=== PATIENT | female | born 1945 | race Caucasian/White ===

== ENCOUNTER → 2016-09-26 | Outpatient (CLI) | payer MEDICARE, OTHER ==
[~2016-09-26] MED LIST: ALORA0.05 MG/24 TD; CITALOPRAM20 MG PO; LOSARTAN POTAS100 MG PO; MUCINEX600 M1 PO; NADOLOL 20 MG T20 MG PO; OMEPRAZOLE20 MG PO; PRAVASTATIN 20M20 MG PO; SPIRIVA HA1 PUFF/INH IH; SYMBICORT1 AER IH
--- NOTE | 2016-09-28 14:38 | RADIOLOGY REPORT PS360 ---
DIG MAMM-SCREEN [facility]LY W/CAD CAD Screening ORDERING PHYSICIAN : Bassam Julio MD PATIENT AGE: 71 years GENDER: Female COMPARISON: Previous mammograms: January. INDICATION: Routine screening no hormones. No new complaints. Previous surgical excisional biopsy right breast. Noncontributory family history TECHNIQUE: Standard CC and MLO images were obtained. R2 CAD reviewed. FINDINGS: Low-density breast bilaterally. No dominant mass nor suspicious calcifications. . No architectural distortion. Minimal fibroglandular elements Again scattered small axillary lymph nodes observed and stable. RIGHT BREAST: Unchanged follow-up in one year. LEFT BREAST: Stable density at the medial left breast. Stable scattered densities elsewhere. Unchanged 2011 IMPRESSION: Stable bilateral mammogram. No areas of concern With no malignancy evident radiographically BI-RADS CATEGORY: 1_Negative RECOMMENDED FOLLOWUP: 12M 12 MONTH FOLLOW-UP (A letter has been sent to the patient regarding results of the study.)
== END ==
LOC: RAD 09:37
DX: Z12.31 Encounter for screening mammogram for malignant neoplasm of breast (principal)
CPT/HCPCS: G0202

== ENCOUNTER → 2016-12-04 | Outpatient (CLI) | payer MEDICARE, OTHER ==
--- NOTE | 2016-12-04 17:33 | RADIOLOGY REPORT PS360 ---
CHEST(2 VIEWS-NOT PORTABLE) COMPARISON: None HISTORY: Shortness of breath TECHNIQUE: PA and lateral to FINDINGS: Borderline emphysematous changes seen with flattening of the hemidiaphragms. There is bilateral basilar opacities suggesting atelectasis. Is no pleural fluid. Cardiac size is normal and the vascularity is normal. IMPRESSION: Borderline COPD with minimal bilateral basilar atelectasis
== END ==
LOC: RAD 10:59
DX: J44.9 Chronic obstructive pulmonary disease, unspecified (principal)

== ENCOUNTER 2017-01-19 09:12 | Day surgery (SDC) | payer MEDICARE, OTHER ==
[~2017-01-19] VITALS: Ht 154.9 cm; Wt 85.3 kg
[~2017-01-19 09:12] MED LIST changes: -OMEPRAZOLE20 MG PO; +OMEPRAZOLE40 MG PO; +SYMBICORT 10.10.2 M1 IH; -SYMBICORT1 AER IH
--- NOTE | 2017-01-19 11:35 | Operative Note ---
Upper GI Endoscopy Procedure date: 01/19/17 Date of : 45 Procedure:Upper GI Endoscopy Esophagogastroduodenoscopy with cold biopsies Indications: Mrs. Grande is a 71-year-old female who is here for diagnostic upper endoscopy. The patient did have a diaphragmatic hernia repair by Dr. David Peoples. Over the last 6 months, she has had epigastric abdominal pain. She had an ultrasound, HIDA scan and upper gastrointestinal series which were essentially unremarkable. The patient does report some nausea, early satiety, bloating and belching. She has some indigestion. Her reflux is controlled with omeprazole. She reports regular bowel function. She reports no melena but does have some occasional hemorrhoidal bleeding. She was to undergo colonoscopy today but was unable to tolerate bowel preparation and had emesis of both doses of the split prep. Her last colonoscopy was 10 years ago. She did have a single polyp at that time and this was performed by Robert Marrero M.D. She does have a long history of chronic obstructive pulmonary disease. Performing Provider: Pranay Caballero MD Referring Provider: Bassam Julio M.D. Sedation: MAC sedation Procedure: Prior to the procedure, a history and physical exam was performed, and patients medications and allergies were reviewed. The risks and benefits of the procedure and the sedation options and risks were discussed with the patient. All questions were answered and informed consent was obtained. The patient was brought to the procedure room. Patient identification and proposed procedure were verified by the physician and the nurse. The patient was placed in a left lateral decubitus position and the scope was passed under direct vision. Throughout the procedure, the patient's blood pressure, pulse, and oxygen saturations were monitored continuously. The endoscope was introduced through the mouth, and advanced to the second part of duodenum. The upper GI endoscopy was accomplished without difficulty. The patient tolerated the procedure well. Findings: The scope was passed directly into the upper esophagus and advanced to the third portion of the duodenum. The post bulbar duodenum and duodenal bulb were normal with normal mucosa and conniventes. There was a large periampullary duodenal diverticulum in the second portion. The scope was withdrawn through a normal duodenal bulb and pylorus into the stomach. There was some chronic peptic/ reactive gastritis throughout the stomach with some linear reactive antritis. Upon retroflexion there was a small 1-2 cm hiatal hernia. 2 biopsies were taken in the antrum and along the lesser curvature for histology and/or CLOtest. The scope was then withdrawn into the esophagus. There was a serrated Z line and cold biopsies were obtained at the Z line to rule out intestinal metaplasia. There was no evidence of reflux esophagitis, Schatzki's ring or Robles's. There were tertiary contractions and evidence of moderate esophageal dysmotility. The remainder of the esophageal mucosa was normal. Immediate complications: None EBL (ml): 0 Impression: 1. Nonerosive gastroesophageal reflux disease with very small sliding hiatal hernia and mild esophageal dysmotility 2. Linear reactive antritis/chronic peptic gastritis 3. 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 We will discuss additional dietary measures and treatment options. It is possible that she has duodenal diverticulitis or even sphincter of Oddi dysfunction. We will not perform colonoscopy today. I do feel that she can make this decision but I do feel that there is some indication that she may have adenomatous polyps. I will discuss this with the patient. We will also discuss a follow-up visit to ensure that she is improving. at [id number]
[2017-01-19 13:50] VITALS: BP 151/87
[2017-01-21] MEDS ORDERED: BUSPAR 10MG TAB10 MG PO (16:18)
[2017-01-21] MEDS ORDERED: AZITHROMYCIN250 M1 PO (16:19)
[2017-01-21] MEDS ORDERED: PREDNISONE 10MG10 MG PO (16:20)
[2017-01-21] MEDS ORDERED: VENLAFAXINE HYD75 M1 PO (16:21)
[2017-01-21] MEDS ORDERED: OXYBUTYNIN CHLO10 MG PO (16:21)
[2017-01-21] MEDS ORDERED: MELOXICAM15 MG PO (16:23)
[2017-01-21] MEDS ORDERED: MIRALAX17 GM/PACK PO (16:27)
[2017-01-21] MEDS ORDERED: CARAFATE1 GM PO (17:08)
[2017-01-22] MEDS ORDERED: PROBIOTIC1 EAC5 PO (09:41)
[2017-01-22] MEDS ORDERED: GUAIFENESIN PO (09:42)
[2017-01-24] MEDS ORDERED: TYLENOL WITH CO1 TA1 PO (07:26)
== END 2017-01-19 12:15 | disposition home or self-care (01) ==
LOC: SDC 09:12
PROVIDERS: Internal Medicine Gastroenterology
PROC: 0DB78ZX Excision of Stomach, Pylorus, Via Natural or Artificial Opening Endoscopic, Diagnostic (ICD-10-PCS; 2017-01-19)
PROC: 0DB68ZX Excision of Stomach, Via Natural or Artificial Opening Endoscopic, Diagnostic (ICD-10-PCS; principal; 2017-01-19 10:30)
DX: K21.9 Gastro-esophageal reflux disease without esophagitis (principal); K44.9 Diaphragmatic hernia without obstruction or gangrene; K22.4 Dyskinesia of esophagus

== ENCOUNTER → 2017-07-03 | Outpatient (CLI) | payer MEDICARE, OTHER ==
[~2017-07-03] MED LIST changes: +AZITHROMYCIN250 M1 PO; +BUSPAR 10MG TAB10 MG PO; +CARAFATE1 GM PO; +GUAIFENESIN PO; +MELOXICAM15 MG PO; +MIRALAX17 GM/PACK PO; +OXYBUTYNIN CHLO10 MG PO; +PREDNISONE 10MG10 MG PO; +PROBIOTIC1 EAC5 PO; +TYLENOL WITH CO1 TA1 PO; +VENLAFAXINE HYD75 M1 PO
--- NOTE | 2017-07-03 20:32 | RADIOLOGY REPORT PS360 ---
PROCEDURE: 2-D M-mode and color Doppler study INDICATIONS FOR THE TEST: Chest pain COPDX Heart Murmur Tobacco SmokingEX Palpitations Fatigue Syncope EdemaX HypertensionXDiabetes Mellitus Rheumatic Fever SOBXDOEXObesityXHyperlipidemia Family History HD Additional History PATIENT INFORMATION HEIGHT: 60 WEIGHT:188 GENDER: Female B/P:110/60 2-D/M-MODE INTERPRETATION: 2-D MEASUREMENTS OBSERVED VALUES IN CMS Right Ventricular Dimension (RVDd) 1.8 Interventricular Septum (Thickness)(IVsd) .9 Left Ventricular Internal Dimensions(LVIDd) 4.6 Left Ventricular Posterior Wall (Thickness)(LVPWd) .9 Aortic Root 3.2 Aortic Cusp Separation 1.9 Left Atrial Dimensions (LAD) 3.3 2D 1. Left atrium is mildly enlarged, left ventricle is normal size, there is mild qualitative concentric left ventricular hypertrophy, visually estimated ejection fraction 55% with no obvious regional wall motion abnormality. 2. The right atrium and right ventricle are mildly enlarged with normal contractility. 3. The aortic valve is minimally thickened and fibrosed. 4. The mitral and tricuspid valvular grossly normal. 5. The pulmonic valve is poorly visualized 6. No significant pericardial effusion noted. DOPPLER INTERROGATION: Doppler interrogation of the aortic, mitral and tricuspid valvular presence of mild mitral and tricuspid regurgitation, tricuspid regurgitation jet velocity is insufficient for calculation of the right ventricular systolic pressure, grade 1 diastolic dysfunction seen without tissue Doppler evidence of raised left atrial pressure. CONCLUSION: 1. Mildly enlarged left atrium, normal left ventricular size, there is mild qualitative concentric left ventricular hypertrophy present, visually estimated ejection fraction 55% with no obvious regional wall motion abnormality, grade 1 diastolic dysfunction seen without tissue Doppler evidence of raised left atrial pressure. 2. Mild mitral and tricuspid regurgitation. 3. No significant pericardial effusion noted.
== END ==
LOC: RT 12:47
DX: R06.09 Other forms of dyspnea (principal)